=== PATIENT | female | born 1980 | race Caucasian/White ===

== ENCOUNTER 2016-08-21 19:05 | Emergency (ER) | payer MEDICAID, OTHER ==
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
[2016-08-21 20:45] LABS: % IMMATURE GRANULYOCYTES 0.3 % (0.0-1.1); ABSOLUTE IMMATURE GRANULOCYTES 0.02 10^3/uL (0.00-0.10); ADD DIFF? NO; ADD MORPH? NO; ADD SCAN? NO; ATYPICAL LYMPHOCYTE FLAG 20 (0-99); FRAGMENT RBC FLAG 0 (0-99); HEMATOCRIT 42.1 % (38.0-47.0); LEFT SHIFT FLG 0 (0-99); LIPEMIA HEMOLYSIS FLAG 80 (0-99); MEAN CELL HEMOGLOBIN 32.6 pg (27.9-34.1); MEAN CELL HEMOGLOBIN CONCENTR. 33.3 g/dL (32.4-36.7); MEAN CELL VOLUME 98.1 fL (81.5-99.8); PLATELET CLUMPS FLAG 0 (0-99); PLATELET COUNT 254 10^3/uL (150-400); RED BLOOD CELL COUNT 4.29 10^6/uL (4.18-5.33); RED CELL DISTRIBUTION WIDTH 13.6 % (11.5-15.2)
[2016-08-21 20:59] LABS: ANION GAP 13 mEq/L (8-16); CALCIUM 8.7 mg/dL (8.5-10.4); CARBON DIOXIDE 24 mEq/l (22-31); CHLORIDE 111 mEq/L (97-110); CREATININE 0.6 mg/dL (0.6-1.0); GLOMERULAR FILTRATION RATE > 60; GLUCOSE 81 mg/dL (70-100); POTASSIUM 3.7 mEq/L (3.5-5.2); SODIUM 148 mEq/L (134-144)
[2016-08-21 21:34] LABS: ETHANOL SERUM 426 mg/dL (0-10)
[2016-08-21 23:30] LABS: COLOR YELLOW; LEUKOCYTE ESTERASE,URINE NEGATIVE (NEGATIVE); NITRITE,URINE NEGATIVE (NEGATIVE)
[2016-08-21] MEDS ORDERED: chlordiazePOXIDE 25 MG CAP PO ONE (23:45)
[2016-08-21] MEDS ORDERED: CHLORDIAZEPOXIDE 25MG PREPK#6 BTL TAKEHOME ONE (23:45)
[2016-08-22] MEDS ORDERED: ONDANSETRON DISINTEGRATING 4 MG TAB PO ONE (01:11)
[2016-08-22] MEDS ORDERED: HEPATITIS B VIRUS VACCINE-PF 20 MCG/ML VIAL IM ONE (01:11)
[2016-08-22] MEDS ORDERED: CEFTRIAXONE IM 350 MG/ML SYRINGE IM ONE (01:11)
[2016-08-22] MEDS ORDERED: AZITHROMYCIN 250 MG TAB PO ONE (01:11)
[2016-08-22] MEDS ORDERED: LORazepam 1 MG TAB ONE (02:51)
[2016-08-22] MEDS ORDERED: LORazepam 1 MG TAB PO ONE (02:59)
[2016-08-22] MEDS ORDERED: CHLORDIAZEPOXIDE 25MG PREPK#6 BTL TAKEHOME ONE (03:34)
[2016-08-22 04:54] VITALS: BP 110/66; PULSE 81; RESP 16; TEMP 97.9; O2SAT 96
== END 2016-08-22 04:55 | disposition home or self-care (01) ==
LOC: EDUNIT# → SANE 08-22 04:55
DX: T74.21XA Adult sexual abuse, confirmed, initial encounter (principal); F10.129 Alcohol abuse with intoxication, unspecified; I25.2 Old myocardial infarction; F17.200 Nicotine dependence, unspecified, uncomplicated; Z86.73 Personal history of transient ischemic attack (TIA), and cerebral infarction without residual deficits; Z23 Encounter for immunization; Y09 Assault by unspecified means
CPT/HCPCS: G0010; G0480; J0696